=== PATIENT | male | born 1960 | race Two or more races ===

== ENCOUNTER 2020-07-08 22:27 | Inpatient (IN) | payer OTHER ==
[~2020-07-08] VITALS: Ht 167.6 cm; Wt 65.8 kg
--- NOTE | 2020-07-08 22:27 | NUR ---
BIBEMS C/O OD ON ATIVAN @ 0800 APPROX 40 TABS UNK DOSE PER PT REPORT. PT ALSO REPORTS METH USE. PT ADMITS TO SI ATTEMPT "I WAS BORED SO I DID IT" PT DENIES HI. PT AAOX4 NO ACUTE DISTRESS NOTED, RESP EVEN AND UNLABORED. PT CALM AND COOPERATIVE AT THIS TIME. PLACE PT ON HOSPITAL GOWN, ALL BELONGINGS REMOVED FROM ROOM AND PLACED IN A LOCKED HOSPITAL LOCKER. 1:1 SITTER AT BEDSIDE FOR PT SAFETY.
--- NOTE | 2020-07-08 22:43 | NUR ---
CHANNEL MARKETING COORDINATOR AT BEDSIDE FOR BLOOD DRAW.
[2020-07-08 22:55] LABS: BASOPHILS # (AUTO) 0.1 /CMM (0.0-0.2); BASOPHILS % (AUTO) 0.7 % (0.0-2.0); EOSINOPHILS % (AUTO) 0.3 % (0.0-6.0); HEMATOCRIT 48 % (39-51); HEMOGLOBIN 15.5 g/dL (13.5-17.5); LYMPHOCYTES # (AUTO) 1.9 /CMM (0.8-4.8); LYMPHOCYTES % (AUTO) 12.7 % (20.0-44.0); MEAN CORPUSCULAR HGB CONC 33 g/dl (31.0-36.0); MEAN CORPUSCULAR VOLUME 90 fL (80-96); MONOCYTES % (AUTO) 6.5 % (2.0-12.0); NEUTROPHILS # (AUTO) 12.3 /CMM (1.8-8.9); NEUTROPHILS % (AUTO) 79.8 % (43.0-81.0); PLATELET COUNT (AUTO) 222 /CMM (150-450); RED BLOOD CELL COUNT(AUTO) 5.33 MIL/uL (4.5-6.0); WHITE BLOOD COUNT (AUTO) 15.4 K/uL (4.3-11.0)
--- NOTE | 2020-07-08 22:56 | NUR ---
COVID SWAB COLLECTED AND SENT TO LAB
[2020-07-08 23:08] LABS: CALCIUM, SERUM 8.5 mg/dL (8.5-10.1); CARBON DIOXIDE 28 mmol/L (21-32); CHLORIDE 100 mmol/L (98-107); CREATININE 1.1 mg/dL (0.6-1.3); GLUCOSE 95 mg/dL (74-106); POTASSIUM 3.6 mmol/L (3.5-5.1); SODIUM SERUM 136 mmol/L (136-145); UREA NITROGEN, BLOOD 17 mg/dL (7-18)
[2020-07-08 23:13] LABS: ALANINE AMINOTRANSFERASE 25 U/L (12-78); ALBUMIN 3.2 g/dL (3.4-5.0); ALKALINE PHOSPHATASE 100 U/L (46-116); ASPARTATE AMINOTRANSFERASE 35 U/L (15-37); BILIRUBIN,DIRECT 0.3 mg/dL (0.0-0.2); BILIRUBIN,TOTAL 1.1 mg/dL (0.2-1.0); TOTAL PROTEIN, SERUM 7.4 g/dL (6.4-8.2)
[2020-07-08 23:14] LABS: ACETAMINOPHEN < 2 ug/ml (10-30); ALCOHOL, BLOOD < 3 mg/dL (0-0)
--- NOTE | 2020-07-08 23:33 | NUR ---
LAB CALLED REGARDING NEGATIVE COVID RESULT.
[2020-07-09] MEDS ORDERED: AZITHROMYCIN 500 MG in IV D5W 250 ML IV ONE ×2 (00:30→11:30)
[2020-07-09] MEDS ORDERED: IV LR 1000 ML 1,000 ML IV ONE (00:30)
[2020-07-09] MEDS ORDERED: AZITHROMYCIN 500 MG VIAL ONE (00:30)
[2020-07-09] MEDS ORDERED: LIDOCAINE 2% JEL UROJET 10 ML MM ONE (00:30)
[2020-07-09 01:07] LABS: BILIRUBIN,URINE MODERATE (NEGATIVE); LEUKOCYTE ESTERASE ,URINE Negative (NEGATIVE); NITRITE, URINE Negative (NEGATIVE); PH,URINE 5.5 (5.0-8.0); PROTEIN,URINE 30 mg/dl (NEGATIVE); UGLUCOSE Negative (NEGATIVE)
[2020-07-09 01:09] LABS: COLOR,URINE ORANGE (YELLOW)
[2020-07-09 01:28] LABS: BACTERIA,URINE Rare /HPF (None Seen); SQUAMOUS EPITHELIAL CELL,UR None Seen /HPF (None Seen); WBC,URINE 0-2 /HPF (0-3)
--- NOTE | 2020-07-09 01:57 | NUR ---
PT ASLEEP, NO ACUTE DISTRESS NOTED, RESP EVEN AND UNLABORED. NO PAIN OR DISCOMFORT NOTED. CALL LIGHT WITHIN REACH, 1:1 SITTER AT BEDSIDE FOR PT SAFETY.
--- NOTE | 2020-07-09 04:03 | NUR ---
CLINICAL AND FACESHEET FAXED TO [facility] FOR VOLUNTARY PSYCH ADMISSION.
--- NOTE | 2020-07-09 04:31 | NUR ---
PT ASLEEP, EASILY AROUSABLE. NO ACUTE DISTRESS NOTED, RESP EVEN AND UNLABORED. NO PAIN OR DISCOMFORT NOTED. CALL LIGHT WITHIN REACH, 1:1 SITTER AT BEDSIDE FOR PT SAFETY.
--- NOTE | 2020-07-09 06:16 | NUR ---
CLINICAL AND FACESHEET RE-FAXED TO [facility] FOR VOLUNTARY PSYCH ADMISSION.
--- NOTE | 2020-07-09 07:15 | NUR ---
REPORT GIVEN TO WILLIAMS RN FOR DOMINGUEZ.
--- NOTE | 2020-07-09 09:02 | NUR ---
THE PATIENT ALERT AND ORIENTED X3. DENIES PAIN. IN ROOM AIR AND DENIES SOB. RESPIRATION REGULAR AND UNLABORED. WILL CONTINUE TO MONITOR THE PATIENT.
--- NOTE | 2020-07-09 09:30 | NUR ---
the patient having breakfast
--- NOTE | 2020-07-09 11:01 | NUR ---
CALLED ART [phone]
--- NOTE | 2020-07-09 11:15 | NUR ---
Road Worker consult: social services manager consult requested for overdose. Patient is a 60-year-old, male. SW met with patient at his bedside in the emergency department. Patient was alert and oriented x4. Patient presented lethargic. Per chart, patient was brought by ambulance on 07/08/20 for an overdose of [address] Richard advised SW that patient requires psychiatric evaluation. SW spoke to Trace Dia LCSW who stated that he would come and assess the patient. SW asked patient if he is currently experiencing suicidal ideation and patient denied suicidal ideation. Patient declined to discuss his overdose. Patient stated that he currently uses methamphetamine once a week. Per patients toxicology report, patient is positive for amphetamine and benzodiazepine. Patient denies history of mental illness but stated that he has been feeling depressed. Patient stated that he currently lives at [address] [place] [address]; [phone] with roommates. Patient stated that he is independent with his ADLs. 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 SW offered the patient substance use and mental health resources. Patient accepted the resources and stated that he would follow up later. Pending assessment from dictaphone transcriber, Trace Dia LCSW. PLAN: Pending assessment from dictaphone transcriber, Trace Dia LCSW, . No further SS intervention, however, SW will remain available as needed. Counseling--Outpatient [facility] [address] [facility], [facility] [place] [address] (Specializes in in-depth psychotherapy for emotional distress: anxiety, depression, interpersonal conflicts, life transitions, childhood abuse) PSYCHIATRIC OUTPATIENT SERVICES [facility] Partial Hospitalization and Intensive Outpatient Program (Managed Care and [place] Only) [address] [facility] [id number] [facility] Partial Hospitalization and Outpatient Program [address] [place] [address] [facility] Partial Hospitalization and Outpatient Program [address] [place], [place] [id number] [address] [address] [facility] [place], [place] [address] [facility] Partial Hospitalization and Outpatient Program [address] [place], [place] [phone] Substance use resources provided included: [facility] Substance Abuse Self-Helpline (SAS) ; [facility] [address] [place] [address] ; [facility] [address] [facility] [address] ; [facility] [address] [facility] [address] ; [facility] [address] [facility] [phone] ; [facility] [address] [facility] [phone] ; [facility] [place]; [facility] [place]; [facility] [place] [facility]; Alcoholics Anonymous -[facility]
[2020-07-09] MEDS ORDERED: CEFTRIAXONE 1 G in IV D5W 50 ML IV ONE (11:30)
--- NOTE | 2020-07-09 11:30 | NUR ---
ASSUMED PT CARE. PT IN BED SLEEPING, ARROUSABLE AND NOT IN RESP DISTRESS.
--- NOTE | 2020-07-09 12:13 | NUR ---
ART, RECOVERY UNIT OPERATOR AT BEDSIDE TALKING TO PT
--- NOTE | 2020-07-09 12:30 | NUR ---
VERIFIED WITH MD THAT AZITHROMYCIN WAS GIVEN ALREADY EARLIER. MD CANCELLED 2ND DOSE D/T AZITHROMYCIN ALREADY GIVEN WITH 24HR. NOTED AND CARRIED OUT.
--- NOTE | 2020-07-09 12:31 | NUR ---
PT PROVIDED WITH MEAL
--- NOTE | 2020-07-09 12:37 | NUR ---
[facility] ASSIGNMENT [phone]
--- NOTE | 2020-07-09 12:50 | NUR ---
MS RN NOTE RECEIVED REPORT FROM KISHAN HOLDEN
--- NOTE | 2020-07-09 12:52 | NUR ---
report given to KISHAN Parikh for ed
[2020-07-09] MEDS ORDERED: Z GUARD REMEDY 2 OZ OINT TP PRN (13:00)
[2020-07-09] MEDS ORDERED: MAG HYDROX/AL HYDROX/SIMETH 30 ML UDC PO PRN (13:00)
[2020-07-09] MEDS ORDERED: ONDANSETRON HCL/PF 4 MG/2 ML VIAL IVP PRN (13:00)
[2020-07-09] MEDS ORDERED: MAGNESIUM HYDROXIDE 30 ML UDC PO PRN (13:00)
[2020-07-09] MEDS ORDERED: ACETAMINOPHEN 325 MG TABLET PO PRN (13:00)
--- NOTE | 2020-07-09 13:15 | NUR ---
pt transported to unit on [facility] with emt and rn at bedside w/ acls protocol. nad noted during [place]. pt ambulated from [facility] wot bed w/o assist
--- NOTE | 2020-07-09 13:15 | NUR ---
SHOT BLASTER NOTE PT WAS TRANSFERRED VIA GURNEY. PT IS AWAKE. A/O X4. ON ROOM AIR, TOLERATING WELL. NO SOB NOTED. IN NO APPARENT DISTRESS. NO REPORTS OF PAIN OR DISCOMFORT AT THIS TIME. ADMITS THAT HE IS EXPERIENCING DEPRESSION BUT DENIES SUICIDAL IDEATION. SITTER AT THE BEDSIDE FOR CLOSED MONITORING. IV ACCESS ON L FA #18 G, INTACT AND PATENT. SAFETY MEASURES MAINTAINED. BED IN LOWEST POSITION, BRAKES LOCKED. SIDE RAILS UP X2. CALL LIGHT WITHIN REACH. WILL CONTINUE PLAN OF CARE.
--- NOTE | 2020-07-09 14:30 | NUR ---
SCRAP SHEAR OPERATOR NOTE REQUESTED FOR A SOCIAL SERVICE. ORDER CARRIED OUT.
[2020-07-09] MEDS: IV D5/0.45 NACL 1,000 ML IV PRN (14:43)
--- NOTE | 2020-07-09 16:08 | NUR ---
Drill Setup Operator note: employee services manager received request for consult for suicide attempt. SW discussed consult request with KISHAN Parikh and notified him that SW assessed patient in the emergency department earlier today. RN stated that SS would be requested if needed at a later time. No further SS intervention at this time, however, SW will remain available as needed.
--- NOTE | 2020-07-09 18:29 | NUR ---
COW TESTER NOTE PATIENT IN BED. A/O X4. ON ROOM AIR, TOLERATING WELL. NO SOB NOTED. NO S/S OF RESPIRATORY DISTRESS. NO REPORTS OF PAIN OR DISCOMFORT AT THIS TIME. STILL DENIES SUICIDAL IDEATION. SITTER AT THE BEDSIDE. IV ACCESS ON L FA #18 G, INTACT AND PATENT. ALL NEEDS HAVE BEEN MET AND ATTENDED. SAFETY MEASURES MAINTAINED. BED IN LOWEST POSITION, BRAKES LOCKED. SIDE RAILS UP X2. CALL LIGHT WITHIN REACH. WILL ENDORSE CONTINUITY OF CARE TO ONCOMING SHIFT.
--- NOTE | 2020-07-09 18:32 | NUR ---
EXHIBITS CURATOR NOTE PATIENT WAS SEEN BY DR HERMELINDA LUQUE AND WILL PUT THE PT ON CARDIAC DIET. ORDER CARRIED OUT.
--- NOTE | 2020-07-09 19:30 | NUR ---
TELE/RN OPENING NOTES PATIENT IS IN BED RESTING. PATIENT IS ALERT AND ORIENTED X 4. PATIENT BREATHING IS EVEN AND UNLABORED NO SIGNS OF SOB OR RESPIRATORY DISTRESS NOTED. PATIENT IV ACCESS IS INTACT AND FLUSHING WELL. SITTER AT BEDSIDE. SITTER AT BEDSIDE. PATIENT DENIES SI/HI AT THIS TIME. SAFETY MEASURE ARE IN PLACE, BED IS LOCKED AND PLACED IN THE LOWEST POSITION, SIDE RAILS UP X 2 CALL LIGHT WITHIN REACH. WILL CONTINUE WITH PATIENT PLAN OF CARE.
[2020-07-09 20:00] VITALS: BP 121/64
[2020-07-10] VITALS: BP 110/74
[2020-07-10 04:00] VITALS: BP 118/72
[2020-07-10] MEDS: IV D5/0.45 NACL 1,000 ML IV PRN (05:11)
[2020-07-10 06:45] LABS: BASOPHILS % (AUTO) 0.5 % (0.0-2.0); EOSINOPHILS % (AUTO) 2.7 % (0.0-6.0); HEMATOCRIT 47 % (39-51); HEMOGLOBIN 15.4 g/dL (13.5-17.5); LYMPHOCYTES # (AUTO) 1.5 /CMM (0.8-4.8); LYMPHOCYTES % (AUTO) 16.1 % (20.0-44.0); MEAN CORPUSCULAR HGB CONC 33 g/dl (31.0-36.0); MEAN CORPUSCULAR VOLUME 91 fL (80-96); MONOCYTES # (AUTO) 0.9 /CMM (0.1-1.30); MONOCYTES % (AUTO) 9.7 % (2.0-12.0); NEUTROPHILS # (AUTO) 6.4 /CMM (1.8-8.9); PLATELET COUNT (AUTO) 233 /CMM (150-450); RED BLOOD CELL COUNT(AUTO) 5.16 MIL/uL (4.5-6.0)
--- NOTE | 2020-07-10 06:51 | NUR ---
TELE/RN CLOSING NOTES PATIENT IS IN BED SLEEPING EASY TO WAKE. PATIENT IS ALERT AND ORIENTED X 4. PATIENT BREATHING IS EVEN AND UNLABORED NO SIGNS OF SOB OR RESPIRATORY DISTRESS NOTED. PATIENT IV ACCESS IS INTACT AND FLUSHING WELL. SITTER AT BEDSIDE. PATIENT CONNECTED TO TELE MONITOR. PATIENT DENIES SI/HI AT THIS TIME. ALL NEEDS MET. SAFETY MEASURE ARE IN PLACE, BED IS LOCKED AND PLACED IN THE LOWEST POSITION, SIDE RAILS UP X 2 CALL LIGHT WITHIN REACH. WILL ENDORSE CARE TO DAY SHIFT.
[2020-07-10 06:52] LABS: CALCIUM, SERUM 9.1 mg/dL (8.5-10.1); MAGNESIUM 2.2 mg/dL (1.8-2.4); PHOSPHORUS 3.2 mg/dL (2.5-4.9); POTASSIUM 4.5 mmol/L (3.5-5.1)
[2020-07-10 07:07] LABS: THYROID STIMULATING HORMONE 2.72 uIU/mL (0.358-3.74)
--- NOTE | 2020-07-10 07:16 | NUR ---
TELE/RN OPENING NOTES RECEIVED PATIENT IN BED ALERT AND ORIENTED X 4. PATIENT BREATHING IS EVEN AND UNLABORED ON ROOM AIR, WITH NO SIGNS OF RESPIRATORY DISTRESS NOTED. PATIENT WITH IV ACCESS ON THE LEFT FORE ARM G18, PATENT AND INTACT, WITH IV FLUID OF D5 1/2NS RUNNING AT 75ML/HR, INFUSING WELL. PATIENT WITH SITTER AT BEDSIDE. PATIENT DENIES SUICIDAL IDEATION AT THIS TIME. SAFETY MEASURE ARE IN PLACE, BED IS LOCKED AND PLACED IN THE LOWEST POSITION, SIDE RAILS UP X 2. CALL LIGHT WITHIN REACH AT ALL TIMES. WILL CONTINUE TO MONITOR PATIENT.
--- NOTE | 2020-07-10 08:56 | NUR ---
RN NOTES INTERVIEWED PATIENT AND ASSESSED FOR SI/HI. PATIENT IS A/O X4, VERBALLY RESPONSIVE, ABLE TO MAKE NEEDS KNOWN, AND STATES THAT HE DOES NOT HAVE ANY SI/HI AT THIS TIME.
[2020-07-10] MEDS: PANTOPRAZOLE 40 MG VIAL IV SCH (10:08)
[2020-07-10] MEDS ORDERED: AZIT250T13 PO (10:50)
--- NOTE | 2020-07-10 11:15 | NUR ---
PAN DEVULCANIZER HELPER NOTES RECEIVED A CALL FROM PATIENT'S SISTER, JERARDO LOWERY . SISTER GAVE HER INFORMATION. WILL ENDORSE TO NEXT SHIFT.
--- NOTE | 2020-07-10 11:40 | NUR ---
RN NOTES PATIENT WAS SEEN BY HERMELINDA LUQUE NP; MADE AWARE OF CURRENT PLAN OF CARE. PER HERMELINDA, PATIENT CLEARED FROM MEDICAL PERSPECTIVE BUT NEEDS TO BE CLEARED BY PSYCH; DR. MAYER TO SEE PATIENT TODAY PER HERMELINDA.
[2020-07-10] MEDS: CEFTRIAXONE 1 G in IV D5W 50 ML IV SCH (12:17)
--- NOTE | 2020-07-10 12:18 | NUR ---
RN NOTES PATIENT W/ SCHEDULED CEFTRIAXONE IV AT 1300 TODAY; PREVIOUS IV LINE ALREADY INFILTRATED. ATTEMPTED TO REINSERT IV LINE BUT UNABLE TO BECAUSE PATIENT REFUSED. EXPLAINED IMPORTANCE OF IV INSERTION BUT PATIENT INSISTED NOT TO HAVE IV LINE REINSERTED BECAUSE THE DOCTOR HAS CLEARED HIM ALREADY. RIGHT TO REFUSE RESPECTED. WILL CONTINUE TO MONITOR.
[2020-07-10 13:02] LABS: BILIRUBIN,URINE NEGATIVE (NEGATIVE); COLOR,URINE YELLOW (YELLOW); LEUKOCYTE ESTERASE ,URINE NEGATIVE (NEGATIVE); NITRITE, URINE NEGATIVE (NEGATIVE); PROTEIN,URINE NEGATIVE (NEGATIVE); UGLUCOSE NEGATIVE (NEGATIVE)
[2020-07-10 13:20] LABS: WBC,URINE 0-2 /HPF (0-3)
[2020-07-10 13:21] LABS: BACTERIA,URINE Rare /HPF (None Seen); SQUAMOUS EPITHELIAL CELL,UR None Seen /HPF (None Seen)
--- NOTE | 2020-07-10 18:15 | NUR ---
CHEMISTRY PHYSICS TEACHER NOTES PATIENT REFUSED IV PERIPHERAL LINE INSERTION. DR. LUQUE NOTIFIED. WILL ENDORSE TO NEXT SHIFT.
--- NOTE | 2020-07-10 19:28 | NUR ---
STATISTICAL PROGRAMMER CLOSING NOTES PATIENT IS ON BED ALERT AND ORIENTED X 4 WITH NO SIGNS OF DISTRESS. PATIENT BREATHING IS EVEN AND UNLABORED ON ROOM AIR WITH NO SIGNS OF RESPIRATORY DISTRESS. PATIENT STILL REFUSED TO HAVE IV ACCESS INSERTED AT THIS TIME. VERBALIZED UNDERSTANDING ON REPERCSSIONS OF ACTIONS/ NOT HAVING IV ACCESS/ FLUID HYDRATION/ MEDICATION. PATIENT CONNECTED TO TELE MONITOR READING SINUS RHYTHYM 83. ALL NEEDS ATTENDED. SAFETY MEASURE ARE IN PLACE, BED IS LOCKED AND PLACED IN THE LOWEST POSITION, SIDE RAILS UP X 2 AND CALL LIGHT WITHIN REACH. AT ALL TIMES. WILL ENDORSE PATIENT TO NEXT SHIFT FOR CONTINUITY OF CARE.
--- NOTE | 2020-07-10 19:30 | NUR ---
TELE/RN OPENING NOTES RECEIVED PATIENT IN BED RESTING. PATIENT IS ALERT AND ORIENTED X 4. PATIENT BREATHING IS EVEN AND UNLABORED NO SIGNS OF SOB OR RESPIRATORY DISTRESS NOTED. PATIENT IV ACCESS IS INTACT AND FLUSHING WELL. SITTER AT BEDSIDE. SITTER AT BEDSIDE. PATIENT DENIES SI/HI AT THIS TIME. SAFETY MEASURE ARE IN PLACE, BED IS LOCKED AND PLACED IN THE LOWEST POSITION, SIDE RAILS UP X 2 CALL LIGHT WITHIN REACH. WILL CONTINUE WITH PATIENT PLAN OF CARE.
[2020-07-10 20:00] VITALS: BP 115/67
[2020-07-11] VITALS: BP 118/71
--- NOTE | 2020-07-11 06:50 | NUR ---
TELE/RN CLOSING NOTES PATIENT IS IN BED RESTING. ALERT AND ORIENTED X 4 WITH NO SIGNS OF DISTRESS. PATIENT BREATHING IS EVEN AND UNLABORED ON ROOM AIR WITH NO SIGNS OF RESPIRATORY DISTRESS. PATIENT STILL REFUSED TO HAVE IV ACCESS INSERTED. PATIENT CONNECTED TO TELE MONITOR READING SR. ALL NEEDS NET DURING SHIFT. SAFETY MEASURE ARE IN PLACE, BED IS LOCKED AND PLACED IN THE LOWEST POSITION, SIDE RAILS UP X 2 AND CALL LIGHT WITHIN REACH. WILL ENDORSE TO DAY SHIFT.
[2020-07-11] MEDS: PANTOPRAZOLE 40 MG VIAL IV SCH (09:00)
--- NOTE | 2020-07-11 09:46 | NUR ---
CITIZEN PARTICIPATION SPECIALIST NOTES PATIENT STILL REFUSED IV INSERTION. HEALTH TEACHING DONE REGARDING IMPORTANCE OF FLUID HYDRATION AND PROTONIX'S INDICATIONS AND USES. PATIENT VERBALIZED UNDERSTANDING BUT APPEARS UNINTERESTED. WILL CONTINUE TO MONITOR PATIENT.
--- NOTE | 2020-07-11 10:00 | NUR ---
HR SHARED SERVICES CONSULTANT NOTES PATIENT SEEN BY DR. PATTERSON, WITH NO NEW ORDER AT THIS TIME. WILL CONTINUE TO MONITOR PATIENT.
[2020-07-11] MEDS: CEFTRIAXONE 1 G in IV D5W 50 ML IV SCH (13:00)
--- NOTE | 2020-07-11 14:45 | NUR ---
NANOELECTRONICS ENGINEER NOTES PATIENT SEEN BY PSYCHIATRIC DOCTOR DR. MAYER.
--- NOTE | 2020-07-11 15:00 | NUR ---
crisis team called regarding new order. Ally buttonhole machine operator well come today to see pt.
--- NOTE | 2020-07-11 19:16 | NUR ---
SEWAGE TREATMENT PLANT OPERATOR CLOSING NOTES PATIENT IS ON BED ALERT AND ORIENTED X 4 WITH NO SIGNS OF DISTRESS. PATIENT BREATHING IS EVEN AND UNLABORED ON ROOM AIR WITH NO SIGNS OF RESPIRATORY DISTRESS. PATIENT STILL REFUSED TO HAVE IV ACCESS, DR. LUQUE AWARE. VERBALIZED UNDERSTANDING ON REPERCUSSIONS OF ACTIONS/ NOT HAVING IV ACCESS/ FLUID HYDRATION/ MEDICATION. ALL NEEDS ATTENDED. SAFETY MEASURE ARE IN PLACE, BED IS LOCKED AND PLACED IN THE LOWEST POSITION, SIDE RAILS UP X 2 AND CALL LIGHT WITHIN REACH. AT ALL TIMES. WILL ENDORSE PATIENT TO NEXT SHIFT FOR CONTINUITY OF CARE.
--- NOTE | 2020-07-11 19:30 | NUR ---
MS/RN OPENING NOTES RECEIVED PATIENT IN BED RESTING. PATIENT IS ALERT AND ORIENTED X 4. PATIENT BREATHING IS EVEN AND UNLABORED NO SIGNS OF SOB OR RESPIRATORY DISTRESS NOTED. PATIENT IV ACCESS IS INTACT AND FLUSHING WELL. SITTER AT BEDSIDE. PATIENT DENIES SI/HI AT THIS TIME, WISHES TO BE DNR/DNI AT THIS TIME. SAFETY MEASURE ARE IN PLACE, BED IS LOCKED AND PLACED IN THE LOWEST POSITION, SIDE RAILS UP X 2 CALL LIGHT WITHIN REACH. WILL CONTINUE WITH PATIENT PLAN OF CARE.
[2020-07-11 20:00] VITALS: BP_SYST 115; BP_SYST 123; BP_DIAS 68; BP_DIAS 75
--- NOTE | 2020-07-11 20:22 | NUR ---
CRISIS TEAM PATIENT SEEN BY TRACEY, WAITING FOR [facility] TRANSFERRED WHEN PATIENT CLEARED PCR RESULTS.
--- NOTE | 2020-07-11 23:46 | NUR ---
COVID SWAB COLLECTED AND SENT TO LAB
--- NOTE | 2020-07-12 06:24 | NUR ---
MS/RN CLOSING NOTES PATIENT IS IN BED RESTING. ALERT AND ORIENTED X 4 WITH NO SIGNS OF DISTRESS. PATIENT BREATHING IS EVEN AND UNLABORED ON ROOM AIR WITH NO SIGNS OF RESPIRATORY DISTRESS. PATIENT STILL REFUSED TO HAVE IV ACCESS INSERTED. ALL NEEDS MET DURING SHIFT. PATIENT CALM AND COOPERATIVE. PATIENT DENIES SI/HI AT THIS TIME. SITTER AT BEDSIDE. SAFETY MEASURE ARE IN PLACE, BED IS LOCKED AND PLACED IN THE LOWEST POSITION, SIDE RAILS UP X 2 AND CALL LIGHT WITHIN REACH. WILL ENDORSE TO DAY SHIFT.
--- NOTE | 2020-07-12 07:08 | NUR ---
MS RN OPENING NOTES RECEIVED PATIENT IN BED ALERT AND ORIENTED X 4. PATIENT BREATHING IS EVEN AND UNLABORED ON ROOM AIR, WITH NO SIGNS OF RESPIRATORY DISTRESS NOTED. PATIENT WITH SITTER AT BEDSIDE. PATIENT DENIES SUICIDAL IDEATION AT THIS TIME. SAFETY MEASURE ARE IN PLACE, BED IS LOCKED AND PLACED IN THE LOWEST POSITION, SIDE RAILS UP X 2. CALL LIGHT WITHIN REACH AT ALL TIMES. WILL CONTINUE TO MONITOR PATIENT.
[2020-07-12] MEDS: PANTOPRAZOLE 40 MG VIAL IV SCH (09:00)
--- NOTE | 2020-07-12 12:02 | NUR ---
DISCHARGE PLANNING: MISAEL faxed clinicals to [facility] [address] [facility] [facility] [address]; Unit TEL: [phone] Intake for male pt. on 8660 hold for DTS.
[2020-07-12] MEDS: CEFTRIAXONE 1 G in IV D5W 50 ML IV SCH (12:14)
--- NOTE | 2020-07-12 14:30 | NUR ---
DISCHARGE PLANNING: MISAEL faxed clinicals to [facility] [phone]. and David Barron for review Addendum: 07/12/20 at 1521 by SALVATORE DOUGLAS [facility] fax: [phone]
--- NOTE | 2020-07-12 14:30 | NUR ---
MS RN NOTES PATIENT'S SISTER CALLED ASKING FOR UPDATES. STILL NO UPDATES FROM [employer] FORCE MEMBER OTHER [facility] OR RETURN AGENT [employer] REGARDING TRANSFER TO A PSYCHIATRIC FACILITY. PATIENT STILL WITH SITTER. WILL CONTINUE TO MONITOR PATIENT.
--- NOTE | 2020-07-12 14:47 | NUR ---
MS RN NOTES RECEIVED A CALL FROM SALES REPRESENTATIVE METALS, JAVI. PER JAVI, PATIENT IS NOT ELIGIBLE FOR ADMISSION AT [facility]. THEY ARE CURRENTLY WORKING ON [facility] IN [place] AND SOME OTHER PLACES THAT CAN ADMIT THE PATIENT. PATIENT UPDATED AND VERBALIZED UNDERSTANDING AND APPRECIATION. WILL CONTINUE TO MONITOR PATIENT.
--- NOTE | 2020-07-12 18:05 | NUR ---
MS RN NOTES PATIENT VISITED BY SISTER SEBASTIÁN.
--- NOTE | 2020-07-12 19:04 | NUR ---
MS RN CLOSING NOTES PATIENT IS ON BED ALERT AND ORIENTED X 4 WITH NO SIGNS OF DISTRESS. PATIENT BREATHING IS EVEN AND UNLABORED ON ROOM AIR WITH NO SIGNS OF RESPIRATORY DISTRESS. STILL AWAITING TRANSFER. ALL NEEDS ATTENDED. SAFETY MEASURE ARE IN PLACE, BED IS LOCKED AND PLACED IN THE LOWEST POSITION, SIDE RAILS UP X 2 AND CALL LIGHT WITHIN REACH. AT ALL TIMES. WILL ENDORSE PATIENT TO NEXT SHIFT FOR CONTINUITY OF CARE.
[2020-07-12 20:00] VITALS: BP 127/70
--- NOTE | 2020-07-12 20:00 | NUR ---
MS RN OPENING NOTES PATIENT RESTING IN BED, ALERT/ORIENTED X 4. PATIENT ABLE TO MAKE NEEDS KNOWN, NO COMPLAINTS OF PAIN OR DISCOMFORT AT THIS TIME. PATIENT ON 5150 HOLD, PATIENT DENIES SUICIDAL IDEATION AT THIS TIME. PATIENT AMBULATORY AND STEADY WITH BATHROOM PRIVILEGES. SAFETY MEASURES IN PLACE, CALL LIGHT WITHIN REACH, SIDE RAILS UP X 2, BED LOCKED IN LOWEST POSITION. WILL CONTINUE TO MONITOR. WILL CONTINUE PLAN OF CARE
[2020-07-12] MEDS ORDERED: TRAZODONE 50 MG TABLET PO PRN (23:00)
--- NOTE | 2020-07-12 23:00 | NUR ---
MS RN NOTES PATIENT REQUESTING SOMETHING FOR SLEEP, REPORTS HAVING DIFFICULTY FALLING ASLEEP. CONTACTED DR. JASON AVELAR, WITH NEW ORDERS FOR TRAZODONE 50 MG PO QHS PRN FOR SLEEP, ORDER CONFIRMED AND READ BACK.
--- NOTE | 2020-07-13 07:00 | NUR ---
MS RN CLOSING NOTES PATIENT RESTING IN BED, ALERT/ORIENTED X 4. PATIENT ABLE TO MAKE NEEDS KNOWN, NO COMPLAINTS OF PAIN OR DISCOMFORT AT THIS TIME. PATIENT ON 5150 HOLD, PATIENT DENIES SUICIDAL IDEATION AT THIS TIME. PATIENT AMBULATORY AND STEADY WITH BATHROOM PRIVILEGES. PATIENT NEEDS MET THROUGHOUT SHIFT. SAFETY MEASURES IN PLACE, CALL LIGHT WITHIN REACH, SIDE RAILS UP X 2, BED LOCKED IN LOWEST POSITION. WILL ENDORSE TO DAY SHIFT NURSE FOR CONTINUITY OF CARE
[2020-07-13] MEDS ORDERED: PANTOPRAZOLE 40 MG TABLET.DR PO SCH (07:30)
[2020-07-13 08:00] VITALS: BP 110/79
--- NOTE | 2020-07-13 08:10 | NUR ---
m/s medical anthropologist: md visit varun (movie shot cameraman) here and made aware re: refusal of iv access and iv antibiotic x3 days. movie shot cameraman to see pt and will order po antibiotic as stated.
[2020-07-13] MEDS ORDERED: AZITHROMYCIN 250 MG TABLET PO SCH (08:30)
--- NOTE | 2020-07-13 08:40 | NUR ---
m/s brick offbearer: notes varun (cider maker) still here and reminded about his iv antibiotic and fluids with verbal order to discontinue. orders read back and carried out.
--- NOTE | 2020-07-13 09:21 | NUR ---
m/s workers compensation claims analyst: notes all orders from varun (CREW CLERK) acknowledged.
--- NOTE | 2020-07-13 10:10 | NUR ---
MISAEL faxed latest labs, vitals and chest x-ray to [facility] ATTN: Antonella or Soraya as requested earlier today at 8 am. MISAEL provided [facility] nursing station phone # if they have nay questions regarding pt.'s medical clearance.
--- NOTE | 2020-07-13 12:50 | NUR ---
Discharge plan: Patient has been accepted to [facility] [[address], [place] [address] ] in North Unit Room # 28B under the care of Dr. Foy. MISAEL notified charge nurse, Betsy in [facility] that nurse to nurse report to be completed by calling [phone]. Betsy will notify regarding time of admission for transportation to be arranged. SW will be available as needed.
--- NOTE | 2020-07-13 13:15 | NUR ---
m/s plant tour guide: notes per cn, pt to go to [facility]. case management making arrangement. pt made aware. eta between [phone]. attempted to call sister, but unable to leave a message due to voice mail is full, pt aware.
--- NOTE | 2020-07-13 15:10 | NUR ---
m/dennis lopez: notes report given to danielle (dimple) from [facility]. eta at 1700. pt aware. dejuan remains at bedside. Addendum: 07/13/20 at 1531 by ASHOK GRANTN correction on above hospital name, pt to go to [facility].
--- NOTE | 2020-07-13 15:40 | NUR ---
m/s conference center coordinator: notes attempted to call jody (sister) at [phone], but still unable to leave a message due to voice mail is full. pt called his sister on his cell phone and still unable to leave a message due to voice mail is full. pt resting comfortable. sitter remains at bedside. will continue to monitor.
--- NOTE | 2020-07-13 16:20 | NUR ---
m/s paralegal: notes jody (sister) called his brother's cell and pt handed the phone to me and spoke to sister and made aware re: transfer to [facility] under dr. begum's care. sister verbalized understanding.
--- NOTE | 2020-07-13 17:15 | NUR ---
m/s city planning engineer: notes pt finishing his dinner. ambulance here and report given to one of the crew. all valuables returned to pt. pt aware that he is going to [facility] under the care of dr. begum.
--- NOTE | 2020-07-13 17:23 | NUR ---
m/s nurse chemical dependency: notes discharge to [facility] via [facility] accompanied by 2 crew with original hold and d'c papers.
== END 2020-07-13 17:23 | DRG 817 ==
LOC: ER 22:27 → MED 07-09 12:41 → TELE 07-09 14:26 → MED 07-11 08:43
PROVIDERS: ADMIT Registered Nurse; ATTEND Nurse Practitioner Acute Care
DX: T42.4X2A Poisoning by benzodiazepines, intentional self-harm, initial encounter (principal); J69.0 Pneumonitis due to inhalation of food and vomit; G92 Toxic encephalopathy; Y92.009 Unspecified place in unspecified non-institutional (private) residence as the place of occurrence of the external cause; D72.829 Elevated white blood cell count, unspecified; Z91.5 Personal history of self-harm; F15.90 Other stimulant use, unspecified, uncomplicated; E80.6 Other disorders of bilirubin metabolism; R45.851 Suicidal ideations; E44.1 Mild protein-calorie malnutrition; R73.9 Hyperglycemia, unspecified
CPT/HCPCS: 36415; 71045-TC; 80048-TC; 80061-TC; 80076-TC; 81001; 83735-TC; 84100-TC; 84443-TC; 85025-TC; 87040-TC; 87081-TC; C9113; C9803; G0378; G0480; J0456; J0696; J3490; J7060; J7120; U0003